=== PATIENT | male | born 1930 | race Caucasian/White ===

== ENCOUNTER 2017-02-19 10:45 | Inpatient (IN) ==
[2017-02-19] MEDS ORDERED: Plasma-Lyte A (PH 7.4) 1,000 ML IVC SCH (11:00)
[2017-02-19] MEDS ORDERED: CeFAZolin Syr 2,000MG/20 ML 2,000 MG/20 ML SYRINGE IVPB ONE (11:00)
[2017-02-19] MEDS ORDERED: Vancomycin 1,500 MG in D5% in Water 250 ML IVPB ONE ×2 (11:00)
--- NOTE | 2017-02-19 11:22 | Anesthesia Evaluation PreOp ---
Date of Encounter: 02/19/17 Time of Encounter: 11:19 - Past History Planned Operation: LLE stent & endarterectomy Cardiac History: HTN (maintained on Metoprolol), Hyperlipidemia (maitnained on Pravastatin), Arrhythmia (Paroxysmal AFib maintained on Coumadin off x 3 days), Other (PVDz maintained on ASA) Pulmonary History: Former smoker (quit 2004 after 50+yrs) MILL TENDER History: Denies Any Significant HX Other Medical History: Denies Any Significant HX, Other (BIG PINE RESERVATION/uses 2 hearing aids ) Anesthesia History: Past Anesthesia (Hemorrhoidectomy, RLE baypss 5.2003, L-CEA 2004, LLE angioplasty 2003, R-CEA 2008,, BLE angiooplasty 2011, Fem-Pop 3.2013) , Problems (Flipped into AFib w/RVR last surgery w/subsequent ICU admission) Alcohol Use: none Drug use: none Medications and Allergies Acetaminophen [Tylenol] 1,000 mg PO Q6HR #90 tablet 02/11/17 [Rx] Aspirin [Lo-Dose Aspirin EC] 81 mg PO DAILY 02/11/17 [History] Metoprolol [Lopressor] 25 mg PO BID 02/11/17 [History] Pravastatin Sodium [Pravachol] 20 mg PO DAILY 02/11/17 [History] Valsartan [Diovan] 80 mg PO DAILY 02/11/17 [History] Warfarin [Coumadin] 4 mg PO DAILY 02/11/17 [History] 3 Allergy/AdvReac Type Severity Reaction Status Date / Time No Known Allergies Allergy Verified 02/11/17 09:19 - Meds/Allergy Pre-op Review Medications Reviewed: Yes Allergies Reviewed: Yes Beta Blockers on Current Med List: Yes (Metoprolol) If Beta Blockers taken, Date/Time (Last Dose taken): 02/18/2017 unspecified time. Anesthesia Results - Labs Laboratory Tests 01/29/17 01/29/17 01/29/17 12:12 12:12 12:12 WBC 9.5 Hgb 11.9 L Plt Count 316 PT INR APTT 43.5 H Sodium 138 Potassium 4.6 H Chloride 104 Carbon Dioxide 27 BUN 19 Creatinine 1.45 H Est GFR (Non-Af Amer) 46 L 02/11/17 09:40 WBC Hgb Plt Count PT 16.0 H INR 1.5 APTT Sodium Potassium Chloride Carbon Dioxide BUN Creatinine Est GFR (Non-Af Amer) - Imaging EKG: image reviewed (58bpm SB) Anesthesia Exam O2 Sat Height 1.88 m Height 1.88 m Height 1.88 m Weight 96.162 kg Weight 96.162 kg Weight 96.162 kg O2 Sat by Pulse Oximetry 98 Vital Signs Temp Pulse Resp BP Pulse Ox 97.9 F 74 18 100/57 98 02/19/17 10:57 02/19/17 10:57 02/19/17 10:57 02/19/17 10:57 02/19/17 10:57 Height: 6'2" Weight: 212# BMI = 27 - HEENT Pupil (Motor): Pupils equal, EOMI Mallampati: II Teeth: Edentulous Oral Opening: Greater than 3 - MILL TENDER LOC: Oriented MILL TENDER Motor: Normal RUE, Normal LUE, Normal RLE, Normal LLE, Normal Face MILL TENDER Sensory: Normal: RUE, LUE, RLE, LLE, Face - Cardiac Rhythm: Regular Murmur: None JVD: No - Pulmonary Breath Sounds: bilateral Clear Respiratory Effort: Symmetrical Anesthesia Assess/Plan ASA Score: 3 Modified Cash Scale for Level of Consciousness: Cooperative, oriented, and tranquil Anesthetic Plan: General Monitoring Plan: Standard Monitors, A-Line Recovery Plan: PACU Anes Supervising Prov Stmt: Pt seen/evaluated, R&B discussed, questions answered and consent obtained. Rima Rodriges MD
[2017-02-19] MEDS ORDERED: *HR* Labetalol 20 MG/4 ML SYRINGE IVP PRN ×2 (11:27→16:50)
[2017-02-19] MEDS ORDERED: Famotidine 20 MG/2 ML VIAL IVP ONE (11:27)
[2017-02-19] MEDS ORDERED: *HR* Promethazine 25 MG/ML VIAL IVP PRN (11:27)
[2017-02-19] MEDS ORDERED: Acetaminophen IV 1,000 MG/100 ML INFUS..BTL IVPB ONE (11:30)
[2017-02-19] MEDS ORDERED: *HR* Succinylcholine 200 MG/10 ML VIAL IVP ONE (11:32)
[2017-02-19] MEDS ORDERED: *HR* Rocuronium Bromide 50 MG/5 ML VIAL ONE (11:32)
[2017-02-19] MEDS ORDERED: *HR* FentaNYL (PF) 100 MCG/2 ML VIAL ONE ×2 (11:32→15:02)
[2017-02-19] MEDS ORDERED: *HR* Propofol 200 MG/20 ML VIAL IVP ONE ×2 (11:33)
--- NOTE | 2017-02-19 11:58 | History & Physical Report ---
Date of Encounter: 02/19/17 Time of Encounter: 11:55 24 Hour HP Update - Instructions Instructions: If the History and Physical is less than 30 days old and was completed prior to A.M. admission and or procedure and has NOT been updated on calendar day of procedure please complete this update prior to performing procedure. - Update Patient reports changes in Medical Condition: No Changes in examination, assessment, or condition: No Changes in Medication: No Preop tests/diagnostics Reviewed: Yes Surgery Remains Indicated: Yes Consent for Planned Operative Procedure(s) Verified: Yes - Pre-Operative Checklist Preoperative Checklist Indicated: Yes Prophylactic Antibiotic Ordered: Yes (Vancomycin due to MRSA risk) Home Medications Include Beta [place]: Yes Beta [place] Taken Today (Day of Surgery): Yes Beta [place] Taken Yesterday (Day Prior to Surgery): Yes Is VTE Prophylaxis Indicated?: Yes
[2017-02-19] MEDS ORDERED: *HR* Vasopressin 20 UNIT/ML VIAL ONE (12:01)
[2017-02-19] MEDS ORDERED: Heparin 1,000 UNITS/500 mL NS 500 ML ONE (12:03)
[2017-02-19] MEDS ORDERED: Lidocaine 1% 20 ML MDV ONE (12:05)
[2017-02-19] MEDS ORDERED: Vancomycin 1,000 MG VIAL ONE (12:07)
[2017-02-19] MEDS ORDERED: EPHEDrine 50 MG/ML VIAL ONE (12:44)
[2017-02-19] MEDS ORDERED: *HR* Heparin 5,000 UNIT/ML VIAL ONE ×2 (13:20→14:13)
[2017-02-19] MEDS ORDERED: *HR* EPINEPHrine 1 MG/ML AMPUL ONE (14:35)
--- NOTE | 2017-02-19 15:26 | Operative Note ---
Date of procedure: 02/19/17 Pre-op diagnosis: Peripheral vascular disease with ulceration Post-op diagnosis: same Procedure: 1. Left superficial femoral artery 5 x 27mm stent. 2. Left superfical femoral/popliteal artery 5 x 37mm stent. 3. Left common femoral endarterectomy with bovine pericardial patch angioplasty. 4. Left deep femoral artery endarterectomy. Complications: None Anesthesia: GETA Surgeon: Bryson Gupta Estimated blood loss (cc): 100 Specimen: Left common and deep femoral plaque Condition: stable Disposition: PACU Procedure in Detail: Indications: The patient is an 86 year old male with a long history of hypertension, hyperlipidemia and severe peripheral vascular disease. The patient sustained a right femur fracture and required rehab. While recovering, he developed a heel ulcer. He also had his toenails clipped closely and developed a left toe ulcer. His wounds failed to heal despite wound care. Revascularization has been recommended to promote wound healing and reduce his risk of limb loss. Procedure: The patient was identified in the preoperative area. The risks, benefits, and alternatives of the procedure were discussed. All questions were answered. The patient was taken to the operating room and placed in supine position on the operating room table. After the induction of general endotracheal anesthesia, he was cleaned and draped in normal sterile fashion. An oblique incision was made over the left groin sharply. Hemostasis was obtained with electrocautery. Through a process of blunt, sharp, and electrocautery dissection, the left femoral vessels were dissected circumferentially and surrounded with vessel loops. The patient received 5000 units of heparin intravenously. The left common femoral artery was cannulated with a large bore needle. A wire was advanced into the left superficial femoral artery under flouroscopic view. The needle was exchanged for a 6 syrian sheath. The sheath was flushed with heparinized saline and a left lower extremity angiogram awas performed. Using a berenstain catheter, the wire was directed through the superficial femoral and popliteal artery stenoses under fluoroscopic view. An omniflush catheter was advanced into the aorta over the wire. A 5 x 27mm stent was advanced over the wire. The stent was positioned under fluoroscopic guidance and confirmed with angiography. The stent was deployed across the left superficial femoral artery stenosis. An angiorgram revealed no residual stenosis at the level of the stent, but a separate high grade stenosis was present in the left popliteal artery. A 5 x 37mm stent was advanced over the wire. The stent was positioned under fluoroscopic guidance and confirmed with retrograde angiography. The stent was deployed across the left popliteal artery stenosis and a completion angiogram revealed resolution of the stenotic segments. The sheath was removed and the vessel was flushed. Strong pulsatile blood flow was noted. The vessels were occluded with vessel loops. A firm stenotic plaque could be palpated in the common femoral artery and extending into the deep femoral artery. A longitudinal incision was made in the common femoral artery and extended into the superficial femoral artery. Using a dental Downey, a standard endarterectomy was performed on the common femoral artery. The endarterectomy was extended into the left deep femoral artery. The plaque was excised. Proximal and distal endpoints were inspected and no elevated flaps were noted. The lumen was irrigated with heparinized saline and bovine pericardial patch was cut to fit the defect and sutured in place with running 6-0 Prolene. Prior to completing the patch anastomosis, each vessel was flushed individually and then reoccluded. Heparinized saline was infused into the lumen and the patch was completed. Flow was restored in the femoral vessels. Thrombin and Gelfoam were used to aid in hemostasis. Meticulous hemostasis was obtained with electrocautery. Polyphasic signal was noted distal to the distal end of the patch as well as in the deep and superficial femoral arteries. The wound was irrigated with antibiotic-containing saline. Platelet-rich and platelet-poor plasma were infused into the wound. The wounds were reapproximated with layer of 2-0 Vicryl followed by three layers of 3-0 Vicryl and 3-0 Monocryl in the subcuticular layer. Sterile dressings were applied. The patient was then extubated and taken to recovery room in stable condition.
[2017-02-19] MEDS: *HR* HYDROmorphone (PF) 1 MG/ML SYRINGE IVP PRN ×2 (15:57→16:07)
--- NOTE | 2017-02-19 15:58 | Anesthesia Evaluation Post Op ---
Date of Encounter: 02/19/17 Time of Encounter: 15:56 - Vital Signs Vital Signs: vss - Lungs Lungs: Clear Ascult./Percussion - Airway Airway: Non-obstructed - Cardiovascular Baseline Rhythm - Mental Status Mental Status: Asleep with brisk response to light stimulation - Pain Pain Scale used: Abi (Faces) - Nausea Vomiting Nausea Vomiting: Not Present - Hydration Hydration: Ojeda catheter - Discharge PostOp Status: Transfer Patient to floor
[2017-02-19] MEDS ORDERED: *HR* OxyCODONE Immed Rel 5 MG TABLET PO PRN (16:50)
[2017-02-19] MEDS ORDERED: *HR* Morphine 2 MG/ML SYRINGE IVP PRN (16:50)
[2017-02-19] MEDS ORDERED: Acetaminophen 325 MG TABLET PO PRN (16:50)
[2017-02-19] MEDS ORDERED: *HR* HYDROcodone/Acet 5/325 mg TABLET PO PRN (16:50)
[2017-02-19] MEDS ORDERED: *HR* LORazepam 0.5 MG TABLET PO PRN (16:50)
[2017-02-19] MEDS ORDERED: Naloxone 0.4 MG/ML INJ IVP PRN ×2 (16:50)
[2017-02-19] MEDS ORDERED: 0.9 % Sodium Chloride 1,000 ML IVC SCH (16:50)
[2017-02-19] MEDS ORDERED: *HR* Heparin 5,000 UNIT/ML VIAL SQ SCH (18:00)
[2017-02-19] MEDS: *HR* Metoprolol 5 MG/5 ML VIAL IVP SCH ×2 (18:25→23:57)
[2017-02-19] MEDS: *HR* Heparin 5,000 UNIT/ML VIAL SQ SCH (18:25)
[2017-02-19] MEDS ORDERED: ceFAZolin 2,000 MG in D5% in Water 100 ML IVPB SCH (19:00)
[2017-02-19] MEDS: Sulfamethoxazole/Trimeth DS 1 EACH TABLET PO SCH (20:16)
[2017-02-19] MEDS: ceFAZolin 2,000 MG in Water for inj. (sterile) 20 ML IVP SCH (20:16)
[2017-02-20] MEDS: ceFAZolin 2,000 MG in Water for inj. (sterile) 20 ML IVP SCH (03:31)
[2017-02-20 03:51] LABS: Basophils % 0.4 %; Eosinophils # 0.2 K/mcL (0.0-0.6); Eosinophils % 3.4 %; Immature Granulocytes % 0.3 % (0-4); Lymphocytes # 0.8 K/mcL (0.6-4.6); Lymphocytes % 11.5 %; Mean Corpuscular HGB Conc 30.6 g/dL (31.6-35.5); Mean Corpuscular Hemoglobin 29.3 pg (28.0-33.3); Mean Platelet Volume 9.9 fL (9.4-12.4); Monocytes # 0.7 K/mcL (0.0-1.3); Monocytes % 9.5 %; Neutrophils # 5.3 K/mcL (1.6-8.9); Platelet Count 307 K/mcL (140-400); Red Blood Count 3.75 M/mcL (4.19-5.50); Red Cell Distribution Width 13.7 % (11.5-14.5); Segmented Neutrophils % 74.9 %
[2017-02-20 04:11] LABS: BUN/Creatinine Ratio 15 (6-26); Blood Urea Nitrogen 17 mg/dL (8-26); Calcium 8.2 mg/dL (8.6-10.8); Carbon Dioxide 27 mEq/L (19-29); Chloride 106 mEq/L (98-109); Glucose 98 mg/dL (70-99); Osmolality,Calculated 292 (280-300); Potassium 4.1 mEq/L (3.5-4.5); Sodium 140 mEq/L (136-145); eGFR For African Americans > 60 (> 60); eGFR For Non-African Americans > 60 (> 60)
[2017-02-20] MEDS: *HR* Metoprolol 5 MG/5 ML VIAL IVP SCH (06:13)
[2017-02-20] MEDS: *HR* Heparin 5,000 UNIT/ML VIAL SQ SCH (06:14)
--- NOTE | 2017-02-20 07:29 | Discharge Summary ---
Date of Encounter: 02/20/17 Time of Encounter: 07:55 - Discharge Diagnosis (1) Atherosclerosis of [place] arteries of left leg with ulceration of other part of foot Priority: Primary Status: Chronic Comments: The patient is postoperative day #1 after left lower extremity stent placement and left lower extremity endarterectomy. He reports that his leg feels better. His incisions are healing. He will be discharged today. (2) Essential hypertension Priority: Primary Status: Chronic (3) Mixed hyperlipidemia Priority: Secondary Status: Chronic (4) Chronic kidney disease, stage 3 Priority: Secondary Status: Chronic (5) Paroxysmal atrial fibrillation Priority: Secondary Status: Chronic (6) Chronic anemia Priority: Secondary Status: Chronic Comments: The patient has chronic anemia. He is hemodynamically stable without evidence of ongoing blood loss. - Discharge Medications Prescriptions: OxyCODONE/APAP 5/325 [Percocet 5/325 MG] 1 each PO Q6HR PRN #25 tablet PRN Reason: postoperative pain Home Medications: Aspirin [Lo-Dose Aspirin EC] 81 mg PO DAILY 02/19/17 [History] Docusate Sodium [Colace] 100 mg PO BID PRN 02/19/17 [History] LORazepam [Ativan] 0.5 mg PO BID PRN 02/19/17 [History] Pantoprazole Sodium [Protonix] 40 mg PO DAILY 02/19/17 [History] Pravastatin Sodium [Pravachol] 40 mg PO HS 02/19/17 [History] Sulfamethoxazole/Trimeth DS [Bactrim Ds] 1 each PO BID 02/19/17 [History] Tramadol HCl [Ultram] 50 mg PO TID PRN 02/19/17 [History] Warfarin Sodium 2.5 mg PO SUTUTHSA 02/19/17 [History] Warfarin [Coumadin] 4 mg PO MOWEFR 02/19/17 [History] levoFLOXacin [Levofloxacin] 500 mg PO DAILY 02/19/17 [History] OxyCODONE/APAP 5/325 [Percocet 5/325 MG] 1 each PO Q6HR PRN #25 tablet 02/20/17 [Rx] Allergies/Adverse Reactions: 3 Allergy/AdvReac Type Severity Reaction Status Date / Time No Known Allergies Allergy Verified 02/19/17 12:12 Date of admission: 02/19/17 13:47 Primary care physician: Jeff Fay M.D. Consults: 02/19/17 17:27 Consult to Emergency Department Manager [CONS] Routine Reason for SW Consult: HOME WITH [facility] FOR DRESSING CHANGES AND THERAPY. HOME WITH SPOUSE. WALKER, CANE, WHEELCHAIR. Procedure(s) Performed: Left femoral endarterectomy, left superficial femoral and popliteal artery stent placement. Discharging clinician: Bryson Gupta Anticipated date of discharge: 02/20/17 - Patient Status Disposition: Home, Self-Care Condition: Good Functional capacity at discharge: independent ambulation Overall status at discharge: patient is back to baseline - Discharge Instructions Instructions: Oxycodone/Acetaminophen (By mouth), Peripheral Vascular Disorders (DC) Follow Up With: Bryson Gupta MD [Partnered Physician] - 03/18/17 1:10 pm Jeff Fay M.D. [Primary Care Provider] - (OFFICE IS TO CALL US BACK WITH A FOLLOW UP APPOINTMENT. I called today and spoke with medical receptionist biller, she confirmed note is in to get an appointment, I ask them to call the patient at home with the follow up appointment) Additional Instructions: May remove bandage and shower 02/21/17. Wash wound gently and pat to dry. Apply dry gauze to wound daily for 7 days. No tub baths or swimming until 03/18/17. Call Dr. Gupta at [phone] with questions or concerns. - Diet and Activity Activity: increase activity as tolerated Diet: advance to your usual diet - Hospital Course Hospital course: Mr. Barlow is a 86 year old male with a history of hypertension, hyperlipidemia, atrial fibrillation, chronic kidney disease and chronic anemia who presented with peripehral vascular disease with nonhealing ulcerations in the left lower extremity. He underwent left superficial femoral and popliteal artery stent placement. He also underwent a left femoral endarterectomy. On postoperative day #1 he was healing well and his foot was warm. He was discharged in stable condition on postoperative day #1 without complication. - Time Spent with Patient Total time spent providing and/or coordinating discharge services: Exam Vital Signs, Last 4 Hours Temp Pulse Resp BP Pulse Ox 02/20/17 03:43 67 02/20/17 03:32 97.7 F 75 18 129/63 98 General: Present: Conversant, No Apparent Distress HEENT: Present: Pupils equal Cardiac: Present: Normal S1 and S2 Lungs: Present: Normal Breath Sounds Neuro: Present: Alert and responsive, Motor nerves grossly intact, Sensory nerves grossly intact Abdomen: Present: Soft Vascular: Present: Normal capillary refill, Surgical incisions (no hematoma or erythema). Absent: Cyanosis, Edema - VTE Documentation of Mechanical Device: Intermittent pneumatic compression device
[2017-02-20 07:34] VITALS: BP 125/60
[2017-02-20] MEDS: Sulfamethoxazole/Trimeth DS 1 EACH TABLET PO SCH (08:08)
[2017-02-20] MEDS ORDERED: levoFLOXacin 500 MG TABLET PO SCH (09:00)
[2017-02-20] MEDS ORDERED: Aspirin Enteric Coated 81 MG Tablet PO SCH (09:00)
--- NOTE | 2017-02-20 12:46 | Physician Discharge Referral ---
Home Health/Hosp Referral Info Provider in Charge Post Discharge: PCP - Diagnosis (1) Atherosclerosis of [place] arteries of left leg with ulceration of other part of foot Priority: Primary Status: Acute (2) Essential hypertension Priority: Secondary Status: Acute (3) Mixed hyperlipidemia Priority: Secondary Status: Acute (4) Chronic kidney disease, stage 3 Priority: Secondary Status: Acute (5) Paroxysmal atrial fibrillation Priority: Secondary Status: Acute - Respiratory Orders Smoking Cessation: Smoking cessation has been advised. For more information, call the [place] Tobacco Quit Line at 4-943-RWOL-NOW. - Dressing/Wound Care Site: Left lower extremity Type of Dressing/Treatments w/Frequency: Dressing changes per wound center recommendations. - Diet/Nutrition Diet/Nutrition Orders: Regular - Activity Activity Orders: Up ad gil - Services Needed Following services are medically necessary services: Home Health Aide - Transfer Medications Prescriptions: OxyCODONE/APAP 5/325 [Percocet 5/325 MG] 1 each PO Q6HR PRN #25 tablet PRN Reason: postoperative pain Home Medications: Aspirin [Lo-Dose Aspirin EC] 81 mg PO DAILY 02/19/17 [History] Docusate Sodium [Colace] 100 mg PO BID PRN 02/19/17 [History] LORazepam [Ativan] 0.5 mg PO BID PRN 02/19/17 [History] Pantoprazole Sodium [Protonix] 40 mg PO DAILY 02/19/17 [History] Pravastatin Sodium [Pravachol] 40 mg PO HS 02/19/17 [History] Sulfamethoxazole/Trimeth DS [Bactrim Ds] 1 each PO BID 02/19/17 [History] Tramadol HCl [Ultram] 50 mg PO TID PRN 02/19/17 [History] Warfarin Sodium 2.5 mg PO SUTUTHSA 02/19/17 [History] Warfarin [Coumadin] 4 mg PO MOWEFR 02/19/17 [History] levoFLOXacin [Levofloxacin] 500 mg PO DAILY 02/19/17 [History] OxyCODONE/APAP 5/325 [Percocet 5/325 MG] 1 each PO Q6HR PRN #25 tablet 02/20/17 [Rx] Allergies/Adverse Reactions: 3 Allergy/AdvReac Type Severity Reaction Status Date / Time No Known Allergies Allergy Verified 02/19/17 12:12 Certification: Further, I certify that my clinical findings support that this patient is homebound (i.e. absences from home require considerable and taxing effort and are for medical reasons or confucianist services or infrequently or short duration when for other reasons) because: Homebound Reason: Patient requires assistance of a person or device to safely leave home, Post-surgery restriction and or conditions limit ability to leave home, Leaving home requires considerable and taxing effort due to condition Attestation: My signature below is to certify that this patient is under my care and that I, or nurse practitioner, or a physician's family and divorce legal assistant working with me, has a face-to -face encounter with this patient.
== END 2017-02-20 10:50 | disposition home health service (06) | DRG 254 ==
LOC: SAMDAY 10:45 → 2NNU 13:47
PROVIDERS: ADMIT Surgery; ATTEND Surgery